=== PATIENT | male | born 1980 | race Caucasian/White ===

== ENCOUNTER 2016-09-14 09:37 | Emergency (ER) | payer OTHER ==
[2016-09-14] MEDS ORDERED: diazePAM 5 MG TABLET PO STA (10:22)
[2016-09-14] MEDS ORDERED: diazePAM 5 MG TABLET PO ONE (10:25)
[2016-09-14] MEDS ORDERED: LORazepam 2 MG/ML SYRINGE IVP STA (13:21)
[2016-09-14] MEDS ORDERED: LORazepam 2 MG/ML SYRINGE ONE (13:23)
== END 2016-09-14 14:43 ==
DX: F41.9 Anxiety disorder, unspecified (principal); R45.851 Suicidal ideations; F32.9 Major depressive disorder, single episode, unspecified
CPT/HCPCS: 36415; 80053; 80306; 80307; 80320; 80329; 83690; 84443; 85025; 96374; 99284; A9270; J2060

== ENCOUNTER 2016-09-25 14:02 | Emergency (ER) | payer OTHER ==
[2016-09-25] MEDS ORDERED: diazePAM 5 MG TABLET PO STA (14:28)
[2016-09-25] MEDS ORDERED: diazePAM 5 MG TABLET PO ONE (14:34)
== END 2016-09-25 15:50 | disposition home or self-care (01) ==
DX: R25.1 Tremor, unspecified (principal); T43.025A Adverse effect of tetracyclic antidepressants, initial encounter; F32.9 Major depressive disorder, single episode, unspecified; F41.9 Anxiety disorder, unspecified; F17.200 Nicotine dependence, unspecified, uncomplicated
CPT/HCPCS: 36415; 80053; 80306; 80320; 81003; 82550; 83690; 85025; 99283; A9270

== ENCOUNTER 2016-12-04 14:07 | Outpatient (CLI) | payer OTHER ==
--- NOTE | 2016-12-04 21:19 | MRI Report ---
EXAM: MRI LUMBAR SPINE WITHOUT CONTRAST EXAM DATE: 12/04/2016 02:47 PM. CLINICAL HISTORY: Low back pain for 3 weeks. Weakness and difficulty sitting. Bilateral leg pain with tingling, pain started following lifting injury. COMPARISON: None. TECHNIQUE: Multiplanar, multisequence T1-weighted and fluid-sensitive sequences of the lumbar spine f rom T12 to S1 without contrast. Other: None. FINDINGS: There is normal alignment of the lumbar spine. The intervertebral disk spaces exhibit normal height a nd exhibit normal signal intensities. The conus terminates at the inferior endplate of L1 and is norm al. Images are degraded by motion. The abdominal aorta is of normal caliber area in There is no significant atrophy of the paraspinal musculature or the psoas musculature. L1-L2: There is no significant disk bulge, central or foraminal stenosis. The facets are normal. L2-L3: There is no significant disk bulge, central or foraminal stenosis. The facets are normal. L3-L4: There is no significant disk bulge, central or foraminal stenosis. The facets are normal. L4-L5: There is no significant disk bulge, central or foraminal stenosis. The facets are normal. L5-S1: There is a minimal protrusion of the disk eccentric to the right but without significant centr al canal stenosis. The facets are normal. There is no significant foraminal stenosis. There is prominence of the exiting bilateral S1 nerve roots. However, they appear to be fairly symmet ramon. There is also a mild degree of prominence of the exiting L5 nerve roots. This may either be with in anatomical variation or possibly represent the presence of perineural cysts or peripheral nerve sh eath tumor. Overall perineural cyst would BE somewhat favored. Further evaluation with postcontrast T 1-weighted images can be obtained for additional characterization. IMPRESSION: 1. There is a minimal protrusion of the disk with annular tear at L5-S1 but without significant centr al canal stenosis. 2. There is a prominent appearance of the bilateral exiting L5 and S1 nerve root; however, they appea r to be fairly symmetric. This may reflect either anatomical variation versus possibly the presence o f bilateral symmetric perineural cysts versus possibly peripheral nerve sheath tumor such as schwanno ma versus neurofibroma. Additional characterization with postcontrast T1-weighted images may be usefu l. This can be performed as deemed clinically appropriate. Comment: The following findings are so common in adults without low back pain that while we report th eir presence, they must be interpreted with caution and in the context of the clinical situation. (Re ines Nails et al, Spine 2001) Prevalence of findings in patients without low back pain: Disk degeneration (any evidence): 92% Disk desiccation/T2 signal loss: 83% Disk height loss: 56% Disk bulge: 64% Disk protrusion: 32% Annular tear/high intensity zone: 38% [facility] Referring Provider Line: [phone] SITE ID: [id number]
== END 2016-12-04 14:08 | disposition home or self-care (01) ==
LOC: DI 14:07
PROVIDERS: ATTEND Student in an Organized Health Care Education/Training Program
DX: M51.27 Other intervertebral disc displacement, lumbosacral region (principal); M51.37 Other intervertebral disc degeneration, lumbosacral region
CPT/HCPCS: 72148

== ENCOUNTER 2017-01-11 12:52 | Outpatient (CLI) | payer OTHER ==
[2017-01-11] MEDS ORDERED: GADOBUTROL 7.5 MMOL/7.5 ML VIAL IVP ONE (13:13)
--- NOTE | 2017-01-12 09:52 | MRI Report ---
MRI OF THE LUMBAR SPINE WITH CONTRAST DATE OF EXAM: 01/11/2017. HISTORY: Back pain. Weakness. Reported bilateral leg pain with tingling. Contrast-enhanced lumbar spi ne MRI imaging is requested to follow-up possible abnormalities. COMPARISON: MRI of the lumbar spine without contrast 12/04/2016. TECHNIQUE: After 5.5 mL IV Gadavist, sagittal and axial T1-weighted lumbar spine MRI imaging was perf ormed. Fat saturation is applied to the sagittal sequence. Axial T1-weighted imaging is performed wit hout and with fat saturation. FINDINGS: Minimal enhancement of the posterior annulus of the L5-S1 disk space which is consistent with a small degenerative annular fissure. No other evidence for abnormal enhancement. No evidence for enhancing or space occupying mass or infection. Unremarkable contrast-enhanced appearance of the cauda equina. No evidence for tumor mass associated with the lower lumbar or upper sacral proximal nerves. Enhancem ent of the dorsal root ganglia in the neural foramina is present as expected. IMPRESSION: Mild posterior disk degeneration at L5-S1. No enhancing tumor. Referring Provider Line: [phone] SITE ID: [id number]
== END 2017-01-11 12:53 | disposition home or self-care (01) ==
LOC: DI 12:52
PROVIDERS: ATTEND Student in an Organized Health Care Education/Training Program
DX: M54.5 Low back pain (principal); M51.37 Other intervertebral disc degeneration, lumbosacral region
CPT/HCPCS: 72149; A9585

== ENCOUNTER 2017-09-20 14:01 | Outpatient (CLI) | payer OTHER | END 2017-09-20 14:02 | disposition home or self-care (01) | LOC: SC 14:01 | PROVIDERS: ATTEND Internal Medicine Pulmonary Disease | DX: G47.30 Sleep apnea, unspecified (principal); G31.84 Mild cognitive impairment of uncertain or unknown etiology; G47.10 Hypersomnia, unspecified | CPT/HCPCS: 99203; 99212 ==